=== PATIENT | male | born 1965 | race Caucasian/White ===

== ENCOUNTER 2017-05-01 07:26 | Day surgery (SDC) | payer MEDICAID ==
[2017-05-01] MEDS ORDERED: Lactated Ringers 1,000 ML IV SCH (07:45)
[2017-05-01] MEDS ORDERED: Propofol 200 MG/20 ML SDV ONE (09:14)
[2017-05-01] MEDS ORDERED: Midazolam 1 MG/ML 2 ML SDV ONE (09:15)
[2017-05-01] MEDS ORDERED: fentaNYL 100 MCG/2 ML SDV ONE (09:15)
[2017-05-01] MEDS ORDERED: Ondansetron 4 MG/2 ML SDV ONE (09:23)
[2017-05-01 11:18] VITALS: BP 124/75
--- NOTE | 2017-05-01 12:22 | OR ---
DATE OF PROCEDURE: 05/01/2017 PREOPERATIVE DIAGNOSIS: Strong family history of colon cancer. Sister had colon cancer. POSTOPERATIVE DIAGNOSES: 1. Diverticulosis. 2. Small colon polyps--transverse colon, 40 cm and 30 cm from the anal verge. 3. Strong family history of colon cancer. Sister had colon cancer. PROCEDURE PERFORMED: Colonoscopy to the cecum with biopsy resection of three small polyps--transverse colon, 40 cm and 30 cm from the anal verge. SURGEON: Soham Hardy MD. ANESTHESIA: IV anesthesia with monitored anesthesia care. INDICATION: This 52-year-old white male is referred for a colonoscopy because of a strong family history of colon cancer. His sister had colon cancer in her 40s. He says his last colonoscopic exam was done five years ago. I counseled him for the procedure including risks and alternatives, and he gave his informed consent to proceed. DESCRIPTION OF PROCEDURE: The patient was placed in the left lateral decubitus position. IV anesthesia was administered by the Anesthesia Service. Time-out was held. A rectal exam was performed, which was unremarkable. The flexible video Olympus colonoscope was introduced through his anus, up his rectum, and out his colon all the way to the cecum. Once the cecum was reached, the scope was slowly withdrawn examining the mucosa throughout. We did see a few scattered left-sided diverticula. In the transverse colon, a small polyp was seen, which was removed. We also saw small polyps at 40 cm from the anal verge and 30 cm from anal verge, both of which were removed. These were removed using the biopsy forceps. The scope was brought back in to the rectum where it was retroflexed. The distal rectum appeared unremarkable. The scope was straightened and removed. He tolerated the procedure well. Soham Hardy MD /[id number]
== END 2017-05-01 11:00 | disposition home or self-care (01) ==
LOC: JP.SDS 07:26 → EDSEX 10:00 → JP.SDS 11:00
PROVIDERS: ATTEND Surgery
DX: Z12.11 Encounter for screening for malignant neoplasm of colon (principal); D12.6 Benign neoplasm of colon, unspecified; K63.5 Polyp of colon; K57.30 Diverticulosis of large intestine without perforation or abscess without bleeding; Z80.0 Family history of malignant neoplasm of digestive organs; E66.01 Morbid (severe) obesity due to excess calories
CPT/HCPCS: 45380; 88305; J2250; J2405; J2704; J3010; J7120

== ENCOUNTER 2022-08-14 06:49 | Day surgery (SDC) | payer MEDICAID ==
[2022-08-14] MEDS ORDERED: Midazolam 1 MG/ML 2 ML SDV ONE (07:13)
[2022-08-14] MEDS ORDERED: fentaNYL 50 MCG/ML SDV ONE (07:13)
[2022-08-14] MEDS ORDERED: Propofol 200 MG/20 ML SDV ONE ×2 (07:13→09:00)
[2022-08-14] MEDS ORDERED: Lactated Ringers 1,000 ML IV SCH (07:30)
[2022-08-14 10:25] VITALS: BP 142/86; PULSE 54
== END 2022-08-14 10:34 | disposition home or self-care (01) ==
LOC: JP.SDS 06:49
PROVIDERS: ATTEND Family Medicine
DX: Z12.11 Encounter for screening for malignant neoplasm of colon (principal); D12.3 Benign neoplasm of transverse colon; K29.50 Unspecified chronic gastritis without bleeding; K21.00 Gastro-esophageal reflux disease with esophagitis, without bleeding; K29.80 Duodenitis without bleeding; K62.1 Rectal polyp; E66.9 Obesity, unspecified; Z80.0 Family history of malignant neoplasm of digestive organs
CPT/HCPCS: 88305; J2250; J2704; J3010; J7120

== ENCOUNTER 2023-07-28 09:12 | Emergency (ER) | payer MEDICAID ==
[2023-07-28 09:33] VITALS: BP 172/94; PULSE 81
[2023-07-28 10:03] LABS: BASOPHILS ABSOLUTE AUTO 0.05 K/uL (0.00-0.10); BASOPHILS PERCENT AUTO 0.5 % (0.1-1.3); EOSINOPHILS ABSOLUTE AUTO 0.12 K/uL (0.00-0.40); EOSINOPHILS PERCENT AUTO 1.1 % (0.0-5.4); HEMATOCRIT 44.6 % (38.4-49.7); HEMOGLOBIN 15.6 g/dL (12.9-16.9); IMMATURE GRAN ABSOLUTE AUTO 0.05 K/uL (0.00-0.23); IMMATURE GRAN PERCENT AUTO 0.5 % (0.0-0.7); LYMPHOCYTES ABSOLUTE AUTO 1.88 K/uL (0.8-3.3); LYMPHOCYTES PERCENT AUTO 17.7 % (11.4-47.7); MEAN CORPUSCULAR HEMOGLOBIN 29.9 pg (31.6-35.5); MEAN CORPUSCULAR VOLUME 85.4 fL (81.4-99.0); MONOCYTES PERCENT AUTO 7.5 % (3.3-12.6); NEUTROPHILS ABSOLUTE AUTO 7.74 K/uL (1.0-7.6); NEUTROPHILS PERCENT AUTO 72.7 % (40.0-78.1); PLATELET COUNT,PLT 256 K/uL (130-375); RED BLOOD CELL COUNT 5.22 M/uL (4.14-5.76); WHITE BLOOD CELL COUNT,WBC 10.6 K/uL (3.2-11.0)
[2023-07-28 10:19] LABS: A/G RATIO 0.9 (1.2-2.2); ALANINE AMINOTRANSFERASE,ALT 140 U/L (12-78); ALKALINE PHOSPHATASE 105 U/L (46-116); ANION GAP 16.1 mmol/L (5.0-14.0); ASPARTATE AMNIOTRANSFERASE,AST 49 U/L (15-37); BILIRUBIN TOTAL 0.5 mg/dL (0.2-1.0); BLOOD UREA NITROGEN,BUN 11 mg/dL (7-18); CALCIUM 9.3 mg/dL (8.5-10.1); CARBON DIOXIDE,CO2 25 mmol/L (21-32); CHLORIDE,CL 97 mmol/L (100-108); CREATININE 0.8 mg/dL (0.8-1.3); EST CRCL DRUG DOSING (CG) 115.13 mL/min; ESTIMATED GFR 103 mL/min (>60); GLUCOSE RANDOM 281 mg/dL (74-106); POTASSIUM,K 4.1 mmol/L (3.6-5.2); PROTEIN TOTAL,TP 8.5 g/dL (6.4-8.2); SODIUM,NA 134 mmol/L (140-148)
[2023-07-28 10:23] LABS: STREP A BY PCR NOT DETECTED (NOT DETECT)
[2023-07-28 10:28] LABS: CORONAVIRUS COVID-19 NAA NEGATIVE (NEGATIVE); INFLUENZA A NAA NEGATIVE (NEGATIVE); INFLUENZA B NAA NEGATIVE (NEGATIVE); RESPIRATORY SYNCYTIAL VIR NAA NEGATIVE (NEGATIVE)
[2023-07-28] MEDS: Sodium Chloride 0.9% 50 ML IV SCH (10:48)
[2023-07-28] MEDS: Iopamidol 612 MG/ML 100 ML Bottle IV SCH (10:48)
== END 2023-07-28 12:15 | disposition home or self-care (01) ==
LOC: JP.ED 09:12
DX: I88.9 Nonspecific lymphadenitis, unspecified (principal); K21.9 Gastro-esophageal reflux disease without esophagitis; E66.9 Obesity, unspecified; Z87.891 Personal history of nicotine dependence; Z79.899 Other long term (current) drug therapy; Z68.41 Body mass index [BMI] 40.0-44.9, adult
CPT/HCPCS: 0241U; 36415; 70491; 80053; 83605; 84145; 85025; 86140; 87651; 99284; J3490; Q9967